=== PATIENT | male | born 2000 | race Hispanic/Latino ===

== ENCOUNTER 2021-07-17 18:07 | Emergency (ER) | payer MEDICAID ==
[2021-07-17] MEDS ORDERED: Boostrix 0.5 ML (Tdap) VIAL ONE (18:47)
[2021-07-17] MEDS ORDERED: CEFAZOLIN 1 GM VIAL ONE (19:05)
[2021-07-17] MEDS ORDERED: Lidocaine 1% (PF) 30 ML VIAL ONE (19:05)
[2021-07-17] MEDS ORDERED: Bupivacaine 0.5% 10 ML VIAL ONE (19:22)
== END 2021-07-17 21:40 | disposition home or self-care (01) ==
LOC: ERS 18:07
DX: S62.634A Displaced fracture of distal phalanx of right ring finger, initial encounter for closed fracture (principal); S61.214A Laceration without foreign body of right ring finger without damage to nail, initial encounter; W26.8XXA Contact with other sharp object(s), not elsewhere classified, initial encounter
CPT/HCPCS: 12001; 90471; 90715; 96365; 96366; J0690; J2001; J3490

== ENCOUNTER 2021-08-24 15:38 | Outpatient (CLI) | payer MEDICAID ==
[2021-08-24 17:33] LABS: Hemoglobin 17.7 g/dL (13.5-17.5); Mean Corpuscular HGB CONC 35.1 g/dL (32.0-36.0); Mean Corpuscular Hemoglobin 29.8 pg (27.0-33.0); Mean Corpuscular Volume 84.8 fl (81.2-95.1); Mean Platelet Volume 10.8 fl (7.4-10.4); Platelet Count 346 10x3/uL (150-450); Red Blood Cell (RBC) Count 5.94 10x6/uL (4.32-5.72); White Blood Cell (WBC) Count 9.6 10x3/uL (3.5-10.5)
[2021-08-25 08:33] LABS: SARS-CoV-2 PCR by NAA Not Detected (NotDetected)
== END 2021-08-24 15:39 | disposition home or self-care (01) ==
LOC: LABBT 15:38
PROVIDERS: ATTEND Orthopaedic Surgery Hand Surgery
DX: Z01.812 Encounter for preprocedural laboratory examination (principal); Z20.822 Contact with and (suspected) exposure to COVID-19
CPT/HCPCS: 85027; U0003; U0005

== ENCOUNTER 2021-08-29 08:56 | Day surgery (SDC) | payer OTHER ==
[2021-08-24 10:24] VITALS: BMI 18.9
[2021-08-29] MEDS ORDERED: Bacitracin Zinc Ointment 30 gm TUBE ONE (12:52)
[2021-08-29] MEDS ORDERED: Bupivacaine PF 0.5% 30 ML VIAL ONE (12:52)
[2021-08-29] MEDS ORDERED: Neomycin-Polymyxin 1 ML AMP ONE (12:52)
[2021-08-29] MEDS ORDERED: Fentanyl 250 MCG/5 ML VIAL ONE (13:10)
[2021-08-29] MEDS ORDERED: ceFAZolin Sodium (SDC) 2 GM/100 ML BAG ONE (13:12)
[2021-08-29] MEDS ORDERED: PROPOFOL 200 MG/20 ML VIAL ONE (13:21)
[2021-08-29] MEDS ORDERED: Lidocaine 1% PF 5 ML VIAL ONE (13:21)
[2021-08-29] MEDS ORDERED: Ondansetron PF 4 MG/2 ML Vial ONE (13:21)
[2021-08-29] MEDS ORDERED: Dexamethasone 20 MG/5 ML VIAL ONE (13:21)
[2021-08-29] MEDS ORDERED: Ketorolac Tromethamine 30 MG/ML VIAL ONE (15:06)
== END 2021-08-29 16:15 | disposition home or self-care (01) ==
LOC: SDC 08:56
PROVIDERS: ATTEND Orthopaedic Surgery Hand Surgery
PROC: 0HQQXZZ Repair Finger Nail, External Approach (ICD-10-PCS; principal; 2021-08-29)
PROC: 0PST04Z Reposition Right Finger Phalanx with Internal Fixation Device, Open Approach (ICD-10-PCS; principal; 2021-08-29)
DX: S67.194A Crushing injury of right ring finger, initial encounter (principal); S62.634B Displaced fracture of distal phalanx of right ring finger, initial encounter for open fracture; W24.0XXA Contact with lifting devices, not elsewhere classified, initial encounter; Y99.0 Civilian activity done for income or pay
CPT/HCPCS: 76000; C1713; J0690; J1100; J1885; J2405; J2704; J3010; S0020